=== PATIENT | male | born 1950 | race Caucasian/White ===

== ENCOUNTER 2022-05-01 00:41 | Day surgery (SDC) | payer OTHER ==
[2022-04-30 07:46] LABS: BASOPHILS PERCENT AUTO 0 % (0-2); EOSINOPHILS ABSOLUTE AUTO 0.11 K/mm3 (0.00-0.68); EOSINOPHILS PERCENT AUTO 6 % (0-6); Hemoglobin 8.8 g/dL (13.5-17.5); IMMATURE GRAN ABSOLUTE AUTO 0.01 K/mm3 (0.00-0.10); IMMATURE GRAN PERCENT AUTO 1 % (0-1); LYMPHOCYTES ABSOLUTE AUTO 0.83 K/mm3 (0.84-5.20); LYMPHOCYTES PERCENT AUTO 43 % (21-46); MONOCYTES ABSOLUTE AUTO 0.13 K/mm3 (0.16-1.47); MONOCYTES PERCENT AUTO 7 % (4-13); Mean Corpuscular HGB 40.4 pg (26.0-34.0); Mean Corpuscular HGB Conc 35.2 g/dL (31.5-36.5); Mean Corpuscular Volume 115 fL (80-100); Mean Platelet Volume 11.1 fL (9.1-12.4); NEUTROPHILS ABSOLUTE AUTO 0.87 K/mm3 (1.96-9.15); NEUTROPHILS PERCENT AUTO 45 % (41-73); RDW Standard Deviation 58.9 fL (35.1-46.3); Red Blood Cell Count 2.18 M/mm3 (4.30-5.90); White Blood Cell Count 1.95 K/mm3 (4.00-11.30)
[2022-04-30 07:56] LABS: Albumin, Blood 3.4 g/dL (3.4-5.0); Albumin/Globulin Ratio 1.2 (0.8-1.8); Bilirubin, Total 0.7 mg/dL (0.1-1.0); Bun/Creatinine Ratio 20.2 (12.0-20.0); Calcium, Blood 9.2 mg/dL (8.5-10.1); Creatinine, Blood 1.14 mg/dL (0.60-1.20); Globulin, Blood 2.8 g/dL (2.2-4.0); Potassium, Blood 3.9 mmol/L (3.5-5.5); Total Protein, Blood 6.2 g/dL (6.4-8.2)
[2022-04-30 08:15] LABS: Platelet Count 12 K/mm3 (150-400)
[~2022-05-01 00:41] MED LIST: ACYC200 PO; Aspirin EC81 MG PO; B-121000 MCG PO; Calcium Carbon650 MG PO; Docusate Sodiu1 EACH PO; FOLI1 PO; LOSARTAN-HCTZ1 EACH PO; MELA3 PO; Ondansetron Odt8 MG PO; Ranitidine HCl300 MG PO; SENN187 PO; Vitamin D2000 UNIT PO
== END 2022-05-01 09:01 | disposition home or self-care (01) ==
LOC: ATC 00:41 → EDSTATUS 04-05 16:30 → LAB FUT 04-05 16:30
PROVIDERS: Internal Medicine Hematology & Oncology
DX: C92.00 Acute myeloblastic leukemia, not having achieved remission (principal); E11.9 Type 2 diabetes mellitus without complications
CPT/HCPCS: 36415; 80053; 85025; 86900; 86901; J1642; J7040; P9035

== ENCOUNTER 2022-06-21 09:08 | Day surgery (SDC) | payer OTHER ==
[2022-06-21 09:42] LABS: BASOPHILS ABSOLUTE AUTO 0.01 K/mm3 (0.00-0.23); BASOPHILS PERCENT AUTO 1 % (0-2); EOSINOPHILS ABSOLUTE AUTO 0.01 K/mm3 (0.00-0.68); EOSINOPHILS PERCENT AUTO 1 % (0-6); Hematocrit 20.9 % (37.0-53.0); Hemoglobin 7.4 g/dL (13.5-17.5); IMMATURE GRAN ABSOLUTE AUTO 0.01 K/mm3 (0.00-0.10); IMMATURE GRAN PERCENT AUTO 1 % (0-1); LYMPHOCYTES ABSOLUTE AUTO 0.74 K/mm3 (0.84-5.20); LYMPHOCYTES PERCENT AUTO 57 % (21-46); MONOCYTES ABSOLUTE AUTO 0.09 K/mm3 (0.16-1.47); MONOCYTES PERCENT AUTO 7 % (4-13); Mean Corpuscular HGB 41.1 pg (26.0-34.0); Mean Corpuscular HGB Conc 35.4 g/dL (31.5-36.5); Mean Corpuscular Volume 116 fL (80-100); Mean Platelet Volume 11.1 fL (9.1-12.4); NEUTROPHILS ABSOLUTE AUTO 0.45 K/mm3 (1.96-9.15); NEUTROPHILS PERCENT AUTO 34 % (41-73); RDW Coefficient Variation 15.7 % (11.7-14.2); RDW Standard Deviation 66.4 fL (35.1-46.3); White Blood Cell Count 1.31 K/mm3 (4.00-11.30)
[2022-06-21 09:45] LABS: Platelet Count 36 K/mm3 (150-400)
== END 2022-06-21 15:43 | disposition home or self-care (01) ==
LOC: LAB SHORT 09:08 → ATC 09:08 → EDSTATUS 12:52 → ATC 15:43
PROVIDERS: Registered Nurse Oncology
DX: C92.00 Acute myeloblastic leukemia, not having achieved remission (principal); R53.83 Other fatigue; D64.81 Anemia due to antineoplastic chemotherapy; I11.9 Hypertensive heart disease without heart failure
CPT/HCPCS: 36415; 36430; 85025; 86850; 86900; 86901; 86923; J1642; J7050; P9016

== ENCOUNTER 2022-08-28 10:05 | Day surgery (SDC) | payer OTHER ==
[2022-08-27 08:31] LABS: BASOPHILS PERCENT AUTO 0 % (0-2); EOSINOPHILS ABSOLUTE AUTO 0.08 K/mm3 (0.00-0.68); EOSINOPHILS PERCENT AUTO 4 % (0-6); Hematocrit 26.8 % (37.0-53.0); Hemoglobin 9.3 g/dL (13.5-17.5); IMMATURE GRAN ABSOLUTE AUTO 0.01 K/mm3 (0.00-0.10); IMMATURE GRAN PERCENT AUTO 1 % (0-1); LYMPHOCYTES ABSOLUTE AUTO 0.99 K/mm3 (0.84-5.20); LYMPHOCYTES PERCENT AUTO 45 % (21-46); MONOCYTES ABSOLUTE AUTO 0.17 K/mm3 (0.16-1.47); MONOCYTES PERCENT AUTO 8 % (4-13); Mean Corpuscular HGB 38.1 pg (26.0-34.0); Mean Corpuscular HGB Conc 34.7 g/dL (31.5-36.5); Mean Corpuscular Volume 110 fL (80-100); Mean Platelet Volume 13.7 fL (9.1-12.4); NEUTROPHILS ABSOLUTE AUTO 0.93 K/mm3 (1.96-9.15); NEUTROPHILS PERCENT AUTO 43 % (41-73); RDW Coefficient Variation 21.2 % (11.7-14.2); RDW Standard Deviation 81.9 fL (35.1-46.3); Red Blood Cell Count 2.44 M/mm3 (4.30-5.90); White Blood Cell Count 2.18 K/mm3 (4.00-11.30)
[2022-08-27 08:38] LABS: Albumin, Blood 3.8 g/dL (3.4-5.0); Albumin/Globulin Ratio 1.2 (0.8-1.8); Bilirubin, Total 0.8 mg/dL (0.1-1.0); Bun/Creatinine Ratio 19.6 (12.0-20.0); Calcium, Blood 10.1 mg/dL (8.5-10.1); Creatinine, Blood 1.07 mg/dL (0.60-1.20); Globulin, Blood 3.2 g/dL (2.2-4.0); Potassium, Blood 4.3 mmol/L (3.5-5.5)
[2022-08-27 08:43] LABS: Platelet Count 13 K/mm3 (150-400)
[2022-08-28 10:56] VITALS: BP 106/71
[2022-08-28 11:17] VITALS: BP 108/70
[2022-08-28 12:10] VITALS: BP 116/73
== END 2022-08-28 12:14 | disposition home or self-care (01) ==
LOC: ATC 10:05
PROVIDERS: Internal Medicine Hematology & Oncology
DX: C92.00 Acute myeloblastic leukemia, not having achieved remission (principal)
CPT/HCPCS: 36415; 80053; 85025; 86900; 86901; A9270; J1642; J7050; P9035

== ENCOUNTER 2022-10-30 01:47 | Day surgery (SDC) | payer OTHER ==
[2022-10-29 10:04] LABS: Hematocrit 20.8 % (37.0-53.0); Hemoglobin 7.3 g/dL (13.5-17.5); Mean Corpuscular HGB 41.7 pg (26.0-34.0); Mean Corpuscular HGB Conc 35.1 g/dL (31.5-36.5); Mean Corpuscular Volume 119 fL (80-100); NRBC ABSOLUTE 0.02 K/mm3 (0.00-0.02); NRBC Auto 1.1 /100 WBC (0.0-0.2); RDW Standard Deviation 64.9 fL (35.1-46.3); Red Blood Cell Count 1.75 M/mm3 (4.30-5.90); White Blood Cell Count 1.85 K/mm3 (4.00-11.30)
[2022-10-29 10:21] LABS: Platelet Count 11 K/mm3 (150-400)
[2022-10-29 10:36] LABS: BASOPHILS PERCENT MAN 0 % (0-2); EOSINOPHILS ABSOLUTE MAN 0.07 K/mm3 (0.00-0.68); EOSINOPHILS PERCENT MAN 4 % (0-6); LYMPHOCYTES % ATYPICAL MANUAL 2 % (0-0); LYMPHOCYTES ABSOLUTE MAN 0.59 K/mm3 (0.84-5.20); LYMPHOCYTES PERCENT MAN 30 % (21-46); MONOCYTES ABSOLUTE MAN 0.07 K/mm3 (0.16-1.47); MONOCYTES PERCENT MAN 4 % (4-13); NEUTROPHILS ABSOLUTE MAN 1.11 K/mm3 (1.96-9.15); SEG NEUTROPHILS PERCENT MAN 60 % (41-73); TOTAL CELLS COUNTED 50
[2022-10-30] VITALS (8 sets, daily range): BP systolic 103–139; BP diastolic 53–75
== END 2022-10-30 12:19 | disposition home or self-care (01) ==
LOC: ATC 01:47 → EDSTATUS 08:00 → ATC 12:19
PROVIDERS: Internal Medicine Hematology & Oncology
DX: C92.00 Acute myeloblastic leukemia, not having achieved remission (principal); I11.9 Hypertensive heart disease without heart failure; F17.210 Nicotine dependence, cigarettes, uncomplicated; Z79.899 Other long term (current) drug therapy
CPT/HCPCS: 36415; 36430; 85025; 86850; 86900; 86901; 86923; 96374; A9270; J1200; J1642; J7050; P9016; P9053

== ENCOUNTER 2022-11-06 01:33 | Day surgery (SDC) | payer OTHER | END 2022-11-06 12:10 | disposition home or self-care (01) | LOC: ATC 01:33 | DX: C92.00 Acute myeloblastic leukemia, not having achieved remission (principal); I11.9 Hypertensive heart disease without heart failure; F17.200 Nicotine dependence, unspecified, uncomplicated; Z79.899 Other long term (current) drug therapy ==

== ENCOUNTER 2022-11-21 12:55 | Day surgery (SDC) | payer OTHER ==
[2022-11-19 08:38] LABS: Hematocrit 19.1 % (37.0-53.0); Hemoglobin 6.7 g/dL (13.5-17.5); Mean Corpuscular HGB 36.8 pg (26.0-34.0); Mean Corpuscular HGB Conc 35.1 g/dL (31.5-36.5); Mean Corpuscular Volume 105 fL (80-100); RDW Coefficient Variation 21.3 % (11.7-14.2); RDW Standard Deviation 77.4 fL (35.1-46.3); Red Blood Cell Count 1.82 M/mm3 (4.30-5.90)
[2022-11-19 08:49] LABS: Platelet Count 6 K/mm3 (150-400); White Blood Cell Count 0.97 K/mm3 (4.00-11.30)
[2022-11-19 09:47] LABS: BAND PERCENT MAN 4 % (0-8); BASOPHILS PERCENT MAN 0 % (0-2); EOSINOPHILS PERCENT MAN 0 % (0-6); LYMPHOCYTES % ATYPICAL MANUAL 4 % (0-0); LYMPHOCYTES ABSOLUTE MAN 0.69 K/mm3 (0.84-5.20); LYMPHOCYTES PERCENT MAN 68 % (21-46); MONOCYTES PERCENT MAN 0 % (4-13); NEUTROPHILS ABSOLUTE MAN 0.27 K/mm3 (1.96-9.15); SEG NEUTROPHILS PERCENT MAN 24 % (41-73); TOTAL CELLS COUNTED 25
[2022-11-21] VITALS (8 sets, daily range): BP systolic 107–134; BP diastolic 57–90
--- NOTE | 2022-11-21 15:07 | NUR ---
[address] VIVAS'S OFFICE. PT HAVING PLATLET TRANSFUSION CURRENTLY. HAS HAD BENEDRYL AND TYLENOL. SEE EMAR. PT REPORTS SOME MILD ITCHING TO SHOULDERS BILAT. NO HIVES NOTED. NO OTHER COMPLAINTS. NEW ORDERS RECEIVED FOR DEXAMETHASONE.
== END 2022-11-21 17:53 | disposition home or self-care (01) ==
LOC: ATC 12:55
PROVIDERS: Internal Medicine Hematology & Oncology
DX: C92.00 Acute myeloblastic leukemia, not having achieved remission (principal)
CPT/HCPCS: 36415; 36430; 85025; 86850; 86900; 86901; 86923; 96374; 96375; A9270; J1100; J1200; J1642; J7050; P9016; P9035

== ENCOUNTER 2022-12-03 13:31 | Day surgery (SDC) | payer OTHER ==
[2022-12-03 08:23] LABS: Hematocrit 19.7 % (37.0-53.0); Hemoglobin 6.9 g/dL (13.5-17.5); Mean Corpuscular HGB 34.3 pg (26.0-34.0); Mean Corpuscular Volume 98 fL (80-100); RDW Coefficient Variation 20.2 % (11.7-14.2); RDW Standard Deviation 69.9 fL (35.1-46.3); Red Blood Cell Count 2.01 M/mm3 (4.30-5.90)
[2022-12-03 08:28] LABS: Platelet Count 3 K/mm3 (150-400)
[2022-12-03 08:54] LABS: BAND PERCENT MAN 4 % (0-8); BASOPHILS PERCENT MAN 0 % (0-2); EOSINOPHILS PERCENT MAN 0 % (0-6); LYMPHOCYTES ABSOLUTE MAN 0.58 K/mm3 (0.84-5.20); LYMPHOCYTES PERCENT MAN 84 % (21-46); MONOCYTES PERCENT MAN 0 % (4-13); NEUTROPHILS ABSOLUTE MAN 0.11 K/mm3 (1.96-9.15); SEG NEUTROPHILS PERCENT MAN 12 % (41-73); TOTAL CELLS COUNTED 25
[2022-12-03 14:51] VITALS: BP 120/80
[2022-12-03 15:09] VITALS: BP 131/75
[2022-12-03 15:47] VITALS: BP 130/74
[2022-12-03 16:10] VITALS: BP 124/77
[2022-12-03 17:19] VITALS: BP 147/81
== END 2022-12-03 17:25 | disposition home or self-care (01) ==
LOC: ATC 13:31 → EDSTATUS 13:32 → ATC 17:25
PROVIDERS: Internal Medicine Hematology & Oncology
DX: C92.00 Acute myeloblastic leukemia, not having achieved remission (principal)
CPT/HCPCS: 36415; 85025; 86850; 86900; 86901; 86923; J1200; J1642; J7050; P9016; P9035

== ENCOUNTER 2022-12-26 | Inpatient (IN) | payer OTHER ==
[2022-12-26] VITALS (41 sets, daily range): BP systolic 53–151; BP diastolic 37–121
[~2022-12-26] VITALS: Ht 182.9 cm; Wt 87.3 kg
[2022-12-26] MEDS ORDERED: ACYC400 PO (00:23)
[2022-12-26 00:30] LABS: Mean Corpuscular HGB 30.9 pg (26.0-34.0); Mean Corpuscular HGB Conc 33.7 g/dL (31.5-36.5); Mean Corpuscular Volume 92 fL (80-100); RDW Coefficient Variation 15.7 % (11.7-14.2); RDW Standard Deviation 52.5 fL (35.1-46.3); Red Blood Cell Count 1.78 M/mm3 (4.30-5.90)
[2022-12-26 00:36] LABS: Hematocrit 16.3 % (37.0-53.0)
[2022-12-26 00:45] LABS: Hemoglobin 5.5 g/dL (13.5-17.5); Platelet Count 4 K/mm3 (150-400); White Blood Cell Count 0.43 K/mm3 (4.00-11.30)
[2022-12-26 00:49] LABS: D-Dimer, Quantitative 1.53 mg/L FEU (0.00-0.52); International Normalized Ratio 1.13; Prothrombin Time Results 11.8 Sec (9.7-11.5)
[2022-12-26 00:53] LABS: Alanine Aminotransfer (ALT/SGP 39 U/L (12-78); Albumin, Blood 2.7 g/dL (3.4-5.0); Alk Phos 65 U/L (50-136); Anion Gap 9 mmol/L (6-16); Aspartate Aminotrans (AST/SGOT 31 U/L (12-37); BASOPHILS PERCENT MAN 0 % (0-2); Bilirubin, Total 0.9 mg/dL (0.1-1.0); Blood Urea Nitrogen 30 mg/dL (8-24); Bun/Creatinine Ratio 22.6 (12.0-20.0); CO2, Blood 25 mmol/L (21-32); Calcium, Blood 8.6 mg/dL (8.5-10.1); Chloride, Blood 106 mmol/L (98-108); Creatinine, Blood 1.33 mg/dL (0.60-1.20); EOSINOPHILS PERCENT MAN 0 % (0-6); Ethanol (Alcohol), Blood, Med <3 mg/dL; Globulin, Blood 2.7 g/dL (2.2-4.0); Glomerular Filtration Rate 57 (60-); Glucose, Blood 165 mg/dL (70-99); LYMPHOCYTES % ATYPICAL MANUAL 4 % (0-0); LYMPHOCYTES ABSOLUTE MAN 0.41 K/mm3 (0.84-5.20); LYMPHOCYTES PERCENT MAN 92 % (21-46); MONOCYTES PERCENT MAN 0 % (4-13); Magnesium, Blood 1.6 mg/dL (1.6-2.4); NEUTROPHILS ABSOLUTE MAN 0.01 K/mm3 (1.96-9.15); Potassium, Blood 3.9 mmol/L (3.5-5.5); SEG NEUTROPHILS PERCENT MAN 4 % (41-73); Sodium, Blood 140 mmol/L (136-145); TOTAL CELLS COUNTED 25; Total Protein, Blood 5.4 g/dL (6.4-8.2)
[2022-12-26 01:17] LABS: Influenza A, PCR NEGATIVE (NEGATIVE); Influenza B, PCR NEGATIVE (NEGATIVE); Resp Syncytial Virus, PCR NEGATIVE (NEGATIVE); SARS-Cov-2 (COVID-19) PCR, MMC NEGATIVE (NEGATIVE)
[2022-12-26] MEDS ORDERED: TAMS.4ER PO (04:37)
[2022-12-26 06:01] LABS: Mean Corpuscular HGB 30.4 pg (26.0-34.0); Mean Corpuscular HGB Conc 33.7 g/dL (31.5-36.5); Mean Corpuscular Volume 90 fL (80-100); Mean Platelet Volume 10.9 fL (9.1-12.4); RDW Coefficient Variation 14.8 % (11.7-14.2); RDW Standard Deviation 47.2 fL (35.1-46.3); Red Blood Cell Count 1.91 M/mm3 (4.30-5.90)
[2022-12-26 06:14] LABS: Hematocrit 17.2 % (37.0-53.0); Hemoglobin 5.8 g/dL (13.5-17.5); White Blood Cell Count 0.44 K/mm3 (4.00-11.30)
[2022-12-26 06:15] LABS: Platelet Count 35 K/mm3 (150-400)
[2022-12-26 06:19] LABS: Albumin, Blood 2.6 g/dL (3.4-5.0); Albumin/Globulin Ratio 1.1 (0.8-1.8); Bun/Creatinine Ratio 27.3 (12.0-20.0); Calcium, Blood 8.1 mg/dL (8.5-10.1); Creatinine, Blood 1.28 mg/dL (0.60-1.20); Globulin, Blood 2.4 g/dL (2.2-4.0); Potassium, Blood 4.3 mmol/L (3.5-5.5)
[2022-12-26 06:26] LABS: BASOPHILS PERCENT MAN 0 % (0-2); EOSINOPHILS PERCENT MAN 0 % (0-6); LYMPHOCYTES % ATYPICAL MANUAL 4 % (0-0); LYMPHOCYTES ABSOLUTE MAN 0.42 K/mm3 (0.84-5.20); LYMPHOCYTES PERCENT MAN 92 % (21-46); MONOCYTES PERCENT MAN 0 % (4-13); NEUTROPHILS ABSOLUTE MAN 0.01 K/mm3 (1.96-9.15); SEG NEUTROPHILS PERCENT MAN 4 % (41-73); TOTAL CELLS COUNTED 25
--- NOTE | 2022-12-26 09:06 | NUR ---
INTUBATION: Pt intubated by anesthesia.
--- NOTE | 2022-12-26 10:11 | NUR ---
NICOLE: 50mcg of neosynephrine given for MAP of [address] Murillo from RSI kit.
--- NOTE | 2022-12-26 10:35 | NUR ---
IMAGING REQUEST: CARD SELLER CALLED REQUESTING IMAGING. [facility] REPORTED THEY WILL SEND IMAGING ELECTRONICALLY AND MAKE A DISC.
--- NOTE | 2022-12-26 11:36 | NUR ---
EXTUBATION: Palliative extubation to comfort care.
--- NOTE | 2022-12-26 11:45 | NUR ---
EXCUBATION: Pt palliatively extubated to comfort care.
--- NOTE | 2022-12-26 11:45 | NUR ---
EXTUBATION: Pt palliatively extubated to comfort care.
--- NOTE | 2022-12-26 12:22 | NUR ---
"Spiritual Care | Comfort Care Visit. Pt. is on comfort care and is snoring but otherwise non responsive. Family members (Spouse and two daughters) are present. Facilitate a life review and listen with interest, empathy and a calming presence. Pts. MOHSEN arrived and was updated on the Pts. condition. Family requested prayer. Prayed for Pt. and family. 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
--- NOTE | 2022-12-26 12:53 | NUR ---
12/26/22 [address] CESAR'S NOTES FOR INTUBATION AND SEDATION NOTES. DR WALKER TO ICU 15 0840, DR CESAR TO ROOM 0850. DR CESAR INTUBED PATIENT. History, Chart, Medications and Allergies reviewed before start of procedure. MONITOR INTACT WITH CONTINUOUS PULSE OXIMETRY, CONTINUOUS END TITAL CO2, AND INTERMITTENT BLOOD PRESSURE. Bite Block Placed.
--- NOTE | 2022-12-26 13:00 | NUR ---
Comfort Care Visit Multiple visits today. Pt placed on comfort care after discussion with Dr Seo, Dr Jimenez, and this PC RN. Pt's family at bedside. Offered therapeutic visits and answered questions. Palliative Care will remain available.
--- NOTE | 2022-12-26 14:16 | NUR ---
"Spiritual Care | EOL Education with Spouse Met with Spouse in the hallway and reestablished rapport. Spouse verbalized that [facility] were [facility]. This liquid center assembler provided EOL education and the spouse verbalized that [facility] in [place] was their home of choice. Spouse and suaghter verbalized gratitude for the EOL education. Relayed [facility] infor to Nurse Gisella, and charge nurse Kimmy."
--- NOTE | 2022-12-26 15:56 | NUR ---
F/U visits this afternoon. Pt appears comfortable with no S/S of distress. Pt's family at bedside. Pt's HR and O2 saturations remain in normal limits. Discussed the potential D/C with hospice with family if no changes in Pt's condition tomorrow. Family reports no preference in hospice agency and would like agency available the soonest. Called and spoke with Dr Gilmore at [facility]. Dr Gilmore reports [facility] can admit Pt tomorrow morning. Spoke with Dayanna in [facility] office. Dayanna will send referral to [facility]. Spoke with Dr Jimenez and discussed case. Dr Jimenez will place hospice referral and is agreeable with plan. Palliative Care will remain available
--- NOTE | 2022-12-26 18:05 | NUR ---
SHIFT SUMMARY: Pt admitted to ICU this morning. Endoscopy staff were at bedside upon pt arrival. He was intubated by anesthesia. EGD revealed GI bleed. Cordis placed in right IJ. Pt received two units PRBC. Family elected to change pt to comfort care rather than pursuring transfer or IR. Since, pt has received a dose of PRN roxinol and ativan. Family has been at bedside throughout the afternoon. Pt continues to have frequent liquid, black BMs.
--- NOTE | 2022-12-26 19:48 | NUR ---
ASSESSMENT/ ASSUMED CARE PT OPENS EYES AND TRIES TO CLIMB OUT OF BED. ABLE TO REDIRECT. NO FAMILY AT BEDSIDE AT THIS TIME. ATTENDS CHANGE AND PT GIVEN WARM BLANKETS. PT GIVEN ICE CHIPS. MOVING SELF AROUND IN BED WITH MIN ASSIST. BED ALARM ON.
--- NOTE | 2022-12-27 05:35 | NUR ---
SHIFT SUMMARY PT RESTING QUIETLY, AT BEDSIDE. BED ALARM ON. PT ABLE TO MAKE NEEDS KNOWN. MED DURING THE NIGHT WITH ROXONAL FOR PAIN WITH GOOD RESULTS. PT INCONT OF BLACK LIQUID STOOL DURING THE NIGHT. ABLE TO USE URINAL WITH ASSIST. SUPPORT TO PT AND GIVEN. REPORT TO ON COMING NURSE
--- NOTE | 2022-12-27 09:14 | NUR ---
Comfort Care Visit Pt resting in bed with his eyes closed. Pt does wake briefly to use the urinal. Spouse April assists Pt with urinal then he drifts back to sleep. Family agreeable with Pt D/C home with [facility] this AM. Assisted family with completing POLST. Obtained copies of POLST, delivered copy to medical records, copy handed to Primary RN to give transport, and copy for hospice. Original back to family. Spoke with Dr Jimenez and discussed case. Placed order for Oconnell Catheter per V/O from Dr Jimenez. Spoke with RN Hemming And Tacking Machine Operator Vance and discussed case. Palliative Care will remain available
--- NOTE | 2022-12-27 10:32 | NUR ---
Spiritual Care Visit. Pt. is more alert today, but I am welcomed by Spouse and daughters. Spouse had questions about submission of POLST documentation. Confirmed with attending nurse that the hospital has a copy. Spouse was going home to rest. Pts. daughters are at bedside. Daughters verbalize that the Pt. plans to discharge home on [facility].
[2022-12-27] MEDS ORDERED: PROM25 PO (10:54)
[2022-12-27] MEDS ORDERED: TRANSDERM-SCOP1 EA13 TD (10:55)
--- NOTE | 2022-12-27 11:57 | NUR ---
DISCHARGE PT DISCHARGED HOME ON HOSPICE VIA AMBULANCE TRANSPORT. PT'S DAUGHTERS AT THE BEDSIDE WHEN TRANSPORT ARRIVED AND WILL MEET PT AT HOME. HOME HOSPICE NOTIFIED THAT PT HAS LEFT. MEDS FAXED TO PHARMACY AND THOSE MEDICATIONS REVIEWED WITH PT'S DAUGHTERS BEFORE THEY LEFT. PT MEDICATED FOR PAIN BEFORE TRANSPORT. ALL BELONGINGS SENT HOME WITH FAMILY.
== END 2022-12-27 11:59 | disposition hospice, home (50) | DRG 808 ==
LOC: ER → ICUE 03:31 → ERHOLD 03:31 → ICUE 08:46
PROVIDERS: Emergency Medicine; Internal Medicine Gastroenterology; ADMIT Internal Medicine
PROC: 5A1935Z Respiratory Ventilation, Less than 24 Consecutive Hours (ICD-10-PCS; 2022-12-26)
PROC: 30233L1 Transfusion of Nonautologous Fresh Plasma into Peripheral Vein, Percutaneous Approach (ICD-10-PCS; 2022-12-26)
PROC: 30233N1 Transfusion of Nonautologous Red Blood Cells into Peripheral Vein, Percutaneous Approach (ICD-10-PCS; 2022-12-26)
PROC: 30233R1 Transfusion of Nonautologous Platelets into Peripheral Vein, Percutaneous Approach (ICD-10-PCS; 2022-12-26)
PROC: 3E033XZ Introduction of Vasopressor into Peripheral Vein, Percutaneous Approach (ICD-10-PCS; 2022-12-26)
PROC: 02H633Z Insertion of Infusion Device into Right Atrium, Percutaneous Approach (ICD-10-PCS; 2022-12-26)
PROC: 0BH17EZ Insertion of Endotracheal Airway into Trachea, Via Natural or Artificial Opening (ICD-10-PCS; principal; 2022-12-26 11:15)
PROC: 0DJ08ZZ Inspection of Upper Intestinal Tract, Via Natural or Artificial Opening Endoscopic (ICD-10-PCS; 2022-12-27)
DX: D61.818 Other pancytopenia (principal); R57.8 Other shock; C92.00 Acute myeloblastic leukemia, not having achieved remission; K92.0 Hematemesis; K92.2 Gastrointestinal hemorrhage, unspecified; R58 Hemorrhage, not elsewhere classified; Z20.822 Contact with and (suspected) exposure to COVID-19; E86.0 Dehydration; D63.1 Anemia in chronic kidney disease; N18.30 Chronic kidney disease, stage 3 unspecified; Z88.8 Allergy status to other drugs, medicaments and biological substances; Z79.899 Other long term (current) drug therapy; Z91.038 Other insect allergy status; Z91.013 Allergy to seafood; Z51.5 Encounter for palliative care; Z87.891 Personal history of nicotine dependence; Z85.828 Personal history of other malignant neoplasm of skin; Z92.21 Personal history of antineoplastic chemotherapy; Z23 Encounter for immunization
CPT/HCPCS: 0241U; 31500; 36415; 36430; 36556; 71045; 71275; 74174; 80053; 83605; 83690; 83735; 83880; 84484; 85025; 85379; 85610; 85730; 86850; 86900; 86901; 86923; 87040; 93005; 93010; 94002; 96361-59; 96374-59; 96375-59; 96376-59; 99285-25; A9270; C1894; C9113; J0171; J0330; J0696; J1200; J2060; J2250; J2371; J2405; J2704; J2765; J3010; J7030; J7120; P9016; P9035; P9059; Q9967